=== PATIENT | female | born 1970 ===

== ENCOUNTER → 2018-12-22 | Day surgery (SDC) | payer OTHER ==
[~2018-12-22] MED LIST: PERCOCET 5-3251 EACH PO; PRILOSEC10 MG PO; RECTICARE30 GM TOP; ZANTAC150 M3 PO
== END | disposition home or self-care (01) ==
LOC: ADM 12-19 07:15 → CIR.AMB 05:51
DX: K64.3 Fourth degree hemorrhoids (principal)